=== PATIENT | female | born 1990 | race African-American/Black ===

== ENCOUNTER 2017-02-04 07:03 | Day surgery (SDC) | payer BC ==
[2017-02-04] VITALS (8 sets, daily range): BP systolic 107–116; BP diastolic 57–77
[~2017-02-04] VITALS: Ht 172.7 cm; Wt 68.0 kg
[~2017-02-04 07:03] MED LIST: BUTALB-ACETAMI1 EAC1 PO; IBUPROFEN200 MG ORAL; IRON325 M1 PO; MULTIVITAMINS1 EA11 ORAL; PROPRANOLOL HCL10 MG ORAL; VITAMIN B-121000 MCG PO; VITAMIN D1000 UNI1 ORAL
[2017-02-04] MEDS ORDERED: LR 1000ml 1,000 ML IVLG SCH (07:31)
--- NOTE | 2017-02-04 07:33 | Immediate Post-Op Evaluation ---
Immediate Post-Op Evalulation Immediate Post-Op Evalulation Procedure: Colonoscopy Date of Evaluation: Feb 04, 2017 Time of Evaluation: 09:04 IV Fluids: 600 LR Blood Products: 0 Estimated Blood Loss: 4 Urinary Output: 0 Blood Pressure Systolic: 107 Blood Pressure Diastolic: 74 Pulse Rate: 73 Respiratory Rate: 16 O2 Sat by Pulse Oximetry: 100 Temperature (Fahrenheit): 98.5 Pain Score (1-10): 1 Nausea: No Vomiting: No Complications 0 Patient Status: awake, reacts, patent, none Hydration Status: adequate Bin Florez MD Feb 04, 2017 07:33
--- NOTE | 2017-02-04 07:33 | 48 Hour Post Anesthesia Eval ---
Post Anesthesia Evaluation Procedure: Colonoscopy Date of Evaluation: Feb 04, 2017 Time of Evaluation: 11:07 Blood Pressure Systolic: 112 0: 74 Pulse Rate: 78 Respiratory Rate: 18 Temperature (Fahrenheit): 98.6 O2 Sat by Pulse Oximetry: 100 Airway: patent Nausea: No Vomiting: No Pain Intensity: 1 Hydration Status: adequate Cardiopulmonary Status: Stable Mental Status/LOC: patient returned to baseline Follow-up Care/Observations: 0 Post-Anesthesia Complications: 0 Follow-up care needed: ready to discharge Bin Florez MD Feb 04, 2017 07:33
--- NOTE | 2017-02-04 07:37 | Anethesia Preoperative Eval ---
Anesthesia Pre-op PMH/ROS General Date of Evaluation: Feb 04, 2017 Time of Evaluation: 07:59 Anesthesiologist: Vikki ASA Score: ASA 2 Mallampati Score Class I : Soft palate, uvula, fauces, pillars visible Class II: Soft palate, uvula, fauces visible Class III: Soft palate, base of uvula visible Class IV: Only hard plate visible Mallampati Classification: Class I Surgeon: Gustabo Diagnosis: Abd Pain Surgical Procedure: Colonoscopy Anesthesia History: none Family History: no anesthesia problems Allergies: Coded Allergies: SULFA (SULFONAMIDE ANTIBIOTICS) (Verified Allergy, Severe, Anaphylaxis, ) SULFAMETHOXAZOLE (Verified Allergy, Severe, Anaphylaxis, 12/25/14) TRIMETHOPRIM (Verified Allergy, Severe, Anaphylaxis, 12/25/14) Medications: see eMAR Past Medical History Cardiovascular: Reports: HTN Pulmonary: Reports: asthma Gastrointestinal/Genitourinary: Reports: GERD Neurologic/Psychiatric: Reports: other - Migranes PSxH Narrative: Pilonidal Cyst Removed Anesthesia Pre-op Phys. Exam Physician Exam 125/74, 100%, 75 Constitutional: NAD Neurologic: CN 2-12 intact Cardiovascular: RRR Respiratory: CTA Gastrointestinal: S/NT/ND Airway Exam Mallampati Score: Class II MO: full ROM: full Teeth: intact Anesthesia Pre-op A/P Risk Assessment & Plan Assessment: ASA 2 Plan: GA Status Change Before Surgery: Bin Rodriguez MD Feb 04, 2017 07:37
[2017-02-04] MEDS ORDERED: TOPIRAMATE25 M1 ORAL (07:42)
[2017-02-04] MEDS ORDERED: TRAMADOL HCL50 MG ORAL (07:42)
[2017-02-04] MEDS ORDERED: MAGNESIUM250 M2 PO (07:42)
[2017-02-04] MEDS ORDERED: Atropine Inj 1mg/10ml Syr IV PRN (07:45)
[2017-02-04] MEDS ORDERED: DiphenhydrAMINE 50mg/ml Inj IVP PRN (07:45)
[2017-02-04] MEDS ORDERED: oxyCODONE HCL/Acetaminophen 5/325mg ORAL PRN (07:45)
[2017-02-04] MEDS ORDERED: Metoclopramide 10mg/2ml Inj IVP PRN (07:45)
[2017-02-04] MEDS ORDERED: Midazolam 2mg/2ml Inj IVP PRN (07:45)
[2017-02-04] MEDS ORDERED: Ketorolac 60mg Inj IV PRN (07:45)
[2017-02-04] MEDS ORDERED: HYDROcodone/Acetamin 7.5/325 tab ORAL PRN (07:45)
[2017-02-04] MEDS ORDERED: Norco 5mg/325mg tab ORAL PRN (07:45)
[2017-02-04] MEDS ORDERED: Labetalol 5mg/ml 20ml vial IV PRN (07:45)
[2017-02-04] MEDS ORDERED: LORazepam Inj 2mg/ml 1ml IV PRN (07:45)
[2017-02-04] MEDS ORDERED: Hydromorphone 0.5mg/0.5ml inj IVP PRN (07:45)
[2017-02-04] MEDS ORDERED: fentaNYL 100 mcg/2 mL IV PRN (07:45)
[2017-02-04] MEDS ORDERED: Ketorolac 30mg Inj IV PRN (07:45)
[2017-02-04] MEDS ORDERED: Propofol 200mg/20ml IV ONE (08:00)
[2017-02-04] MEDS ORDERED: Lidocaine 1% MPF 10mg/ml 5ml ONE (08:00)
[2017-02-04] MEDS ORDERED: Alfentanil 2ml Inj ONE (08:00)
[2017-02-04] MEDS ORDERED: LR 1000ml ONE (08:00)
[2017-02-04] MEDS ORDERED: Ketamine 500mg Inj ONE (08:00)
[2017-02-04] MEDS ORDERED: Midazolam 2mg/2ml Inj ONE (08:00)
--- NOTE | 2017-02-04 08:13 | Pre-Procedure Note/Attestation ---
Pre-Procedure Note/Attestation Complete Prior to Procedure Planned Procedure: not applicable Procedure Narrative: colon Indications for Procedure Pre-Operative Diagnosis: diarrhea, TTP Attestation I attest that I discussed the nature of the procedure; its benefits; risks and complications; and alternatives (and the risks and benefits of such alternatives ), prior to the procedure, with the patient (or the patient's legal associate financial representative). I attest that, if there was a reasonable possibility of needing a blood transfusion, the patient (or the patient's legal associate financial representative) was given the [facility] standardized written summary, pursuant to the Roberto Lucien Blood Safety Act ([place] Health and Safety Code # 1645, as amended). I attest that I re-evaluated the patient just prior to the surgery and that there has been no change in the patient's H&P, except as documented below: MONICO WHATLEY Feb 04, 2017 08:13
--- NOTE | 2017-02-04 08:13 | Short Stay Surgery H&P ---
History of Present Illness History of Present Illness Chief Complaint see typed H&P HPI Tasha Greer is a 26 year old female who was admitted on for Diarrhea Patient History Allergies: Coded Allergies: SULFA (SULFONAMIDE ANTIBIOTICS) (Verified Allergy, Severe, Anaphylaxis, ) SULFAMETHOXAZOLE (Verified Allergy, Severe, Anaphylaxis, 12/25/14) TRIMETHOPRIM (Verified Allergy, Severe, Anaphylaxis, 12/25/14) PAST MEDICAL HISTORY: Past Surgeries: Social History: Medication History Scheduled Cholecalciferol (Vitamin D3)* (Vitamin D*), 1,000 UNIT ORAL DAILY, (Reported) Cyanocobalamin (Vitamin B-12) (Vitamin B-12), 1,000 MCG PO DAILY, (Reported) Ferrous Sulfate (Iron), 325 MG PO DAILY, (Reported) Ibuprofen (Ibuprofen*), 200 MG ORAL PRN, (Reported) Magnesium Oxide (Magnesium), 250 MG PO DAILY, (Reported) Multivitamin (Multivitamins), 1 CAP ORAL DAILY, (Reported) Topiramate (Topiramate), 25 MG ORAL DAILY, (Reported) Scheduled PRN Tramadol Hcl* (Ultram*), 50 MG ORAL Q6H PRN for For Pain, (Reported) Discontinued Medications Butalb/Acetaminophen/Caffeine (Zzmcxf-Nhivfoxj-Mtoq 50-325-40), 1 EACH PO PRN, ( Reported) Discontinued Reason: Pt stopped taking med Propranolol Hcl* (Inderal*), 10 MG ORAL BID, (Reported) Discontinued Reason: Pt stopped taking med Physical Exam Vital Signs Last Vital Signs Date Time Temp Pulse Resp B/P (MAP) Pulse Ox O2 Delivery O2 Flow Rate FiO2 02/04/17 07:35 98.6 73 18 116/77 100 Room Air Labs Laboratory Tests Test 02/04/17 07:15 Urine HCG, Qualitative Negative Plan Attestation Are the patient's medical conditions optimized for surgery? MONICO WHATLEY Feb 04, 2017 08:13
--- NOTE | 2017-02-05 01:45 | Procedure Note ---
GASTROENTEROLOGY PROCEDURE REPORT SURGEON: Stacia Montejo M.D. PROCEDURE: Colonoscopy with biopsy. ANESTHESIA: Please see the separate anesthesiologist notes for details. PRE-ENDOSCOPIC DIAGNOSIS: Chronic diarrhea with negative outpatient workup. POST-ENDOSCOPIC DIAGNOSES: 1. Normal colonoscopy including 15 cm terminal ileum. 2. Status post random biopsies of the terminal ileum, right colon, left colon, sigmoid colon, and rectum. DESCRIPTION OF PROCEDURE: The procedure, its risks, indications, alternatives, and possible complications including, but not limited to bleeding, infection, perforation, , and anesthesia complications were explained to the patient and informed consent was obtained. The colonoscope was introduced into the rectum and advanced to 15 cm into the terminal ileum. The colonoscope was then gradually withdrawn. The mucosa was examined carefully. No abnormal findings were identified. Random biopsies were obtained. The patient was sent to recovery in good condition. COMPLICATIONS: None. RECOMMENDATIONS: 1. Follow up biopsy results. 2. Outpatient followup. Stacia Montejo M.D. DR: ADITYA JOB#: [id number] CC: Stacia Montejo M.D.; Fax#: [phone]
--- NOTE | 2017-02-06 08:43 | Endoscopy Procedure Note ---
Endoscopy Procedure Note Indication for Procedure: diarrhea Procedures Performed: colonoscopy Operative Findings/Diagnosis: nl Specimen: yes Pt Tolerated Procedure Well: Yes Estimated Blood Loss: none Anesthesiologist: see report Anesthesia: MAC Medication Given: see anesthesia record Implant(s) used?: No 50 yrs or older w/o bx or poly: Not Applicable 10yrs. F/U not recommended: Not Applicable If not recommended, why?: MONICO WHATLEY Feb 06, 2017 08:43
--- NOTE | 2017-02-06 08:44 | Brief Operative Note ---
Immediate Post Operative Note Operative Note Chief Complaint: diarrhea Pre-op Diagnosis: diarrhea, TTP Procedure: colon bx Post-op Diagnosis: nl Post-op Diagnosis: same as pre-op Surgeon: sukhjinder Anesthesiologist: see report Anesthesia: MAC, moderate sedation Specimen: yes Complications: none Condition: stable Fluids: recorded Estimated Blood Loss: none Drains: none Implant(s) used?: No MONICO WHATLEY Feb 06, 2017 08:44
== END 2017-02-04 10:00 | disposition home or self-care (01) ==
LOC: GAS 07:03
DX: R19.7 Diarrhea, unspecified (principal); K21.9 Gastro-esophageal reflux disease without esophagitis; I10 Essential (primary) hypertension; Z88.2 Allergy status to sulfonamides; Z88.8 Allergy status to other drugs, medicaments and biological substances
CPT/HCPCS: 45380; 81025; J2250; J2704; J3490; J7120; 94003; 94150